=== PATIENT | female | born 1975 | race Hispanic/Latino ===

== ENCOUNTER → 2019-11-21 | Outpatient (CLI) | payer OTHER ==
[~2019-11-21] MED LIST: GADOBENATE DIMEGLUMINE 1 ML IV ONE; SODIUM CHLORIDE 0.9% 50ML 50 ML ONE
--- NOTE | 2019-11-21 11:37 | Diagnostic Imaging Report ---
Examination: MRI BRAIN WOW CONTRAST History: Right hearing loss. Comparison studies:None Technique: Pre-and post axial T1, post contrast coronal T1 and, axial 3-D T2 through the internal auditory canals with sagittal oblique and coronal reconstructions. Postcontrast axial DWI and T2 flair and post contrast axial, sagittal and coronal T1 through the brain. Intravenous contrast: 12 mL MultiHance. Findings: Supratentorial region: Masses: None. Acute or chronic vascular insults: None. Ventricles: Normal in size. No hydrocephalus. Basal ganglia and thalami: No signal abnormalities. Extra-axial collections: None. Posterior fossa: Cerebellar hemispheres: Normal in signal intensity and symmetric. Brainstem: No signal abnormalities. Cerebellopontine angle cisterns: Clear. No masses. Internal auditory canals: Symmetric. No masses. No abnormal enhancement. Middle ear cavity and mastoid air cells: Opacified on the right. Clear on the left. Craniocervical junction: No abnormalities. The foramen magnum is patent. IMPRESSION: Right otomastoid opacification. A temporal bone CT would be useful to assess ossicles chain. Signed by: Dr. Laquita Domingo M.D. on 11/21/2019 11:34 AM
== END ==
LOC: MRI 08:30
PROVIDERS: ATTEND Otolaryngology
DX: H90.2 Conductive hearing loss, unspecified (principal)
CPT/HCPCS: 70553; A9577